=== PATIENT | female | born 1960 | race Caucasian/White ===

== ENCOUNTER 2023-05-22 15:31 | Inpatient (IN) | payer BC, SELFPAY ==
[~2023-05-22 15:31] MED LIST: Iopamidol-370 76% 500 ML MDV (1 ML CHARGE) ONE
[2023-05-22] MEDS ORDERED: Ondansetron PF 4 MG/2 ML Vial ONE (16:14)
[2023-05-22] MEDS ORDERED: Morphine 4 MG/ML VIAL ONE (16:14)
[2023-05-22 16:15] LABS: #Monocytes 1.7 thou/uL (0.11-0.59); #Neutrophils 10.9 thou/uL (1.40-6.50); %Basophils 0.2 % (0.0-1.0); %Lymphocytes 10.8 % (21.0-51.0); %Monocytes 12.1 % (0.0-10.0); %Neutrophils 76.4 % (42.0-75.0); Hematocrit 37.4 % (36.0-47.0); Hemoglobin 12.4 g/dL (12.0-16.0); Mean Corpuscular HGB CONC 33.2 g/dL (32.0-36.0); Mean Corpuscular Hemoglobin 30.7 pg (27.0-31.0); Mean Corpuscular Volume 92.6 fl (78.0-98.0); Mean Platelet Volume 8.6 fL (7.4-10.4); Platelet Count 359 10x3/uL (130-400); RBC Distribution Width 12.9 % (11.5-14.5); Red Blood Cell (RBC) Count 4.04 mill/uL (4.20-5.40); White Blood Cell (WBC) Count 14.3 10x3/uL (4.8-10.8)
[2023-05-22] MEDS ORDERED: Clindamycin/D5W 900 MG in Premix 1 BAG IVPB SCH (16:30)
[2023-05-22 17:00] LABS: ALT (SGPT) 14 U/L (8-55); AST (SGOT) 12 U/L (5-34); Albumin 4.1 g/dL (3.4-4.8); Alkaline Phosphatase 60 U/L (40-110); Anion Gap 11 mmol/L (10-20); BUN (Urea Nitrogen) 14 mg/dL (9.8-20.1); Bilirubin, Total 0.5 mg/dL (0.2-1.2); Calc. Creatinine Clearance 0 mL/min (70-130); Calcium 9.1 mg/dL (7.8-10.44); Carbon Dioxide 26 mmol/L (23-31); Chloride 103 mmol/L (98-107); Estimated GFR 87; Globulin 3.2 g/dL (2.4-3.5); Glucose 98 mg/dL (80-115); Potassium 3.4 mmol/L (3.5-5.1); Protein, Total 7.3 g/dL (5.8-8.1); Sodium 137 mmol/L (136-145)
[2023-05-22] MEDS ORDERED: Acetaminophen 650 MG Suppository PR PRN (17:59)
[2023-05-22] MEDS ORDERED: Acetaminophen 325 MG TAB PO PRN (17:59)
[2023-05-22] MEDS ORDERED: Ondansetron ODT 4 MG TAB PO PRN (17:59)
[2023-05-22] MEDS ORDERED: Lisinopril 10 MG TAB PO SCH (18:30)
[2023-05-22 22:12] VITALS: BMI 31.1
[2023-05-22] MEDS: Famotidine 20 MG TAB PO SCH (22:13)
[2023-05-22] MEDS: HYDROcodone/Acetaminophen 5/325 mg Tablet PO PRN (22:13)
[2023-05-22] MEDS: Clindamycin/D5W 900 MG in Premix 1 BAG IVPB SCH (22:31)
[2023-05-22] MEDS: Ondansetron PF 4 MG/2 ML Vial IVP PRN (23:22)
[2023-05-23] MEDS ORDERED: Piperacillin/Tazobactam 3.375 GM in Sodium Chloride 0.9% 100 ML IVPB SCH (01:15)
[2023-05-23] MEDS ORDERED: Dexamethasone 10 MG/ML VIAL SLOW IVP SCH (01:30)
[2023-05-23] MEDS ORDERED: Morphine 2 MG/ML VIAL SLOW IVP PRN (02:14)
[2023-05-23] MEDS ORDERED: Electrolyte Replacement Protocol 1 EACH FS SCH (02:15)
[2023-05-23] MEDS: Ampicillin/Sulbactam 3 GM in Sodium Chloride 0.9% 100 ML IVPB SCH ×4 (02:32→21:06)
[2023-05-23 05:04] LABS: #Monocytes 1.3 thou/uL (0.11-0.59); #Neutrophils 10.9 thou/uL (1.40-6.50); %Basophils 0.2 % (0.0-1.0); %Lymphocytes 7.3 % (21.0-51.0); %Monocytes 9.6 % (0.0-10.0); %Neutrophils 82.4 % (42.0-75.0); Hematocrit 33.9 % (36.0-47.0); Mean Corpuscular HGB CONC 32.4 g/dL (32.0-36.0); Mean Corpuscular Hemoglobin 30.3 pg (27.0-31.0); Mean Corpuscular Volume 93.4 fl (78.0-98.0); Mean Platelet Volume 8.7 fL (7.4-10.4); Platelet Count 325 10x3/uL (130-400); Red Blood Cell (RBC) Count 3.63 mill/uL (4.20-5.40); White Blood Cell (WBC) Count 13.2 10x3/uL (4.8-10.8)
[2023-05-23 05:38] LABS: Anion Gap 13 mmol/L (10-20); BUN (Urea Nitrogen) 14 mg/dL (9.8-20.1); Calc. Creatinine Clearance 119 mL/min (70-130); Calcium 8.6 mg/dL (7.8-10.44); Carbon Dioxide 24 mmol/L (23-31); Chloride 102 mmol/L (98-107); Estimated GFR 86; Glucose 128 mg/dL (80-115); Sodium 135 mmol/L (136-145)
[2023-05-23] MEDS: Clindamycin/D5W 900 MG in Premix 1 BAG IVPB SCH ×3 (07:19→22:09)
[2023-05-23] MEDS: Famotidine 20 MG TAB PO SCH ×2 (09:17→22:06)
[2023-05-23] MEDS: HYDROcodone/Acetaminophen 5/325 mg Tablet PO PRN (09:17)
[2023-05-23] MEDS: Lisinopril 10 MG TAB PO SCH (09:32)
[2023-05-23] MEDS ORDERED: EPINEPHrine 1 MG/ML VIAL ONE (12:50)
[2023-05-23] MEDS ORDERED: Chlorhexidine Gluconate 15 ML UDCUP SSP ONE (12:51)
[2023-05-23] MEDS ORDERED: Lidocaine 1% (PF) 30 ML VIAL ONE (12:51)
[2023-05-23] MEDS ORDERED: Clindamycin/D5W 900 mg/50 ml Premix Bag ONE (13:43)
[2023-05-23] MEDS ORDERED: Lidocaine 2% 6 ML (Jelly) SYR ONE (13:55)
[2023-05-23] MEDS ORDERED: Lidocaine 2% PF 5 ML VIAL ONE (13:55)
[2023-05-23] MEDS ORDERED: Oxymetazoline HCl 0.05% (30 ML BOT) ONE (13:59)
[2023-05-23] MEDS ORDERED: fentaNYL PF 100 MCG/2 ML SYRINGE ONE (14:15)
[2023-05-23] MEDS ORDERED: SUCCINYLCHOLINE/SOD CL,ISO/PF 200 MG/10 ML SYRINGE FS ONE (14:16)
[2023-05-23] MEDS ORDERED: Metoclopramide HCl 10 MG (2 mL) VIAL ONE (14:16)
[2023-05-23] MEDS ORDERED: PROPOFOL 20 ML ONE (14:16)
[2023-05-23] MEDS ORDERED: Dexamethasone 20 MG/5 ML VIAL ONE (14:16)
[2023-05-23] MEDS ORDERED: Ondansetron PF 4 MG/2 ML Vial ONE (14:16)
[2023-05-23] MEDS ORDERED: Glycopyrrolate 0.2 MG/ML 5 ML SYRINGE ONE (14:33)
[2023-05-23] MEDS ORDERED: Rocuronium Bromide 10 MG/ML (10ML VIAL) ONE (14:48)
[2023-05-23] MEDS ORDERED: Vancomycin 1 GM VIAL ONE (15:13)
[2023-05-23] MEDS ORDERED: SUGAMMADEX SODIUM 200 MG/2 ML VIAL ONE (15:25)
[2023-05-23] MEDS ORDERED: Promethazine HCl 25 MG/ML VIAL IM PRN (15:56)
[2023-05-23] MEDS ORDERED: Ondansetron HCl/PF 4 MG/2 ML Vial IVP PRN (15:56)
[2023-05-23] MEDS ORDERED: HYDROmorphone 2 MG/ML VIAL SLOW IVP PRN (15:56)
[2023-05-23] MEDS ORDERED: Ketorolac Tromethamine 30 MG/ML VIAL IVP PRN (15:56)
[2023-05-23] MEDS ORDERED: fentaNYL 50 mcg/mL 1 mL Vial ONE ×2 (15:57→16:16)
[2023-05-23] MEDS: Morphine 2 MG/ML VIAL SLOW IVP PRN ×2 (17:13→21:03)
[2023-05-23] MEDS: Chlorhexidine Gluconate 15 ML UDCUP SSP SCH (21:06)
[2023-05-24] MEDS: HYDROcodone/Acetaminophen 5/325 mg Tablet PO PRN ×5 (00:06→21:35)
[2023-05-24] MEDS: Ondansetron PF 4 MG/2 ML Vial IVP PRN (00:06)
[2023-05-24] MEDS: Ampicillin/Sulbactam 3 GM in Sodium Chloride 0.9% 100 ML IVPB SCH ×4 (02:41→19:10)
[2023-05-24] MEDS: Clindamycin/D5W 900 MG in Premix 1 BAG IVPB SCH ×3 (05:31→22:49)
[2023-05-24] MEDS: Famotidine 20 MG TAB PO SCH ×2 (09:55→21:33)
[2023-05-24] MEDS: Lisinopril 10 MG TAB PO SCH (09:55)
[2023-05-24] MEDS: Chlorhexidine Gluconate 15 ML UDCUP SSP SCH ×2 (09:56→21:33)
[2023-05-25] MEDS: Ampicillin/Sulbactam 3 GM in Sodium Chloride 0.9% 100 ML IVPB SCH ×4 (02:40→19:12)
[2023-05-25] MEDS: HYDROcodone/Acetaminophen 5/325 mg Tablet PO PRN ×4 (02:46→21:17)
[2023-05-25] MEDS: Clindamycin/D5W 900 MG in Premix 1 BAG IVPB SCH ×3 (06:08→21:16)
[2023-05-25 06:41] LABS: #Eosinphils 0.1 thou/uL (0.0-0.7); #Monocytes 1.2 thou/uL (0.11-0.59); %Basophils 0.4 % (0.0-1.0); %Lymphocytes 16.5 % (21.0-51.0); %Monocytes 12.1 % (0.0-10.0); %Neutrophils 69.3 % (42.0-75.0); Hemoglobin 10.7 g/dL (12.0-16.0); Mean Corpuscular HGB CONC 32.4 g/dL (32.0-36.0); Mean Corpuscular Hemoglobin 29.8 pg (27.0-31.0); Mean Corpuscular Volume 91.9 fl (78.0-98.0); Mean Platelet Volume 8.8 fL (7.4-10.4); Platelet Count 332 10x3/uL (130-400); RBC Distribution Width 13.1 % (11.5-14.5); Red Blood Cell (RBC) Count 3.59 mill/uL (4.20-5.40); White Blood Cell (WBC) Count 10.1 10x3/uL (4.8-10.8)
[2023-05-25 07:05] LABS: Anion Gap 10 mmol/L (10-20); BUN (Urea Nitrogen) 20 mg/dL (9.8-20.1); Calc. Creatinine Clearance 146 mL/min (70-130); Calcium 8.2 mg/dL (7.8-10.44); Carbon Dioxide 24 mmol/L (23-31); Chloride 103 mmol/L (98-107); Estimated GFR 100; Glucose 91 mg/dL (80-115); Potassium 3.7 mmol/L (3.5-5.1); Sodium 133 mmol/L (136-145)
[2023-05-25] MEDS: Lisinopril 10 MG TAB PO SCH (08:38)
[2023-05-25] MEDS: Famotidine 20 MG TAB PO SCH ×2 (08:38→21:17)
[2023-05-25] MEDS: Chlorhexidine Gluconate 15 ML UDCUP SSP SCH ×2 (08:38→21:14)
[2023-05-26] MEDS: Ampicillin/Sulbactam 3 GM in Sodium Chloride 0.9% 100 ML IVPB SCH ×4 (01:24→19:54)
[2023-05-26] MEDS: HYDROcodone/Acetaminophen 5/325 mg Tablet PO PRN ×2 (01:25→19:53)
[2023-05-26] MEDS: Clindamycin/D5W 900 MG in Premix 1 BAG IVPB SCH ×3 (05:41→21:02)
[2023-05-26 06:50] LABS: #Eosinphils 0.3 thou/uL (0.0-0.7); #Neutrophils 4.7 thou/uL (1.40-6.50); %Basophils 0.4 % (0.0-1.0); %Eosinophils 3.2 % (0.0-10.0); %Lymphocytes 24.2 % (21.0-51.0); %Monocytes 12.2 % (0.0-10.0); %Neutrophils 59.4 % (42.0-75.0); Hemoglobin 10.1 g/dL (12.0-16.0); Mean Corpuscular HGB CONC 32.6 g/dL (32.0-36.0); Mean Corpuscular Hemoglobin 30.6 pg (27.0-31.0); Mean Corpuscular Volume 93.9 fl (78.0-98.0); Mean Platelet Volume 8.8 fL (7.4-10.4); Platelet Count 337 10x3/uL (130-400); RBC Distribution Width 13.1 % (11.5-14.5); White Blood Cell (WBC) Count 7.9 10x3/uL (4.8-10.8)
[2023-05-26 07:06] LABS: Anion Gap 9 mmol/L (10-20); BUN (Urea Nitrogen) 15 mg/dL (9.8-20.1); Calc. Creatinine Clearance 128 mL/min (70-130); Calcium 8.3 mg/dL (7.8-10.44); Carbon Dioxide 26 mmol/L (23-31); Chloride 102 mmol/L (98-107); Estimated GFR 93; Glucose 96 mg/dL (80-115); Potassium 3.4 mmol/L (3.5-5.1); Sodium 134 mmol/L (136-145)
[2023-05-26] MEDS ORDERED: Potassium Chloride 20 MEQ TAB PO SCH (08:00)
[2023-05-26] MEDS: Famotidine 20 MG TAB PO SCH ×2 (09:07→19:52)
[2023-05-26] MEDS: Lisinopril 10 MG TAB PO SCH (09:07)
[2023-05-26] MEDS: Chlorhexidine Gluconate 15 ML UDCUP SSP SCH ×2 (09:08→19:52)
[2023-05-26] MEDS ORDERED: Polyethylene Glycol 3350 17 GM Packet PO PRN (10:36)
[2023-05-26] MEDS ORDERED: Polyethylene Glycol 3350 17 GM Packet PO SCH (10:45)
[2023-05-26 12:36] LABS: Potassium 3.9 mmol/L (3.5-5.1)
[2023-05-27] MEDS: Ampicillin/Sulbactam 3 GM in Sodium Chloride 0.9% 100 ML IVPB SCH ×3 (01:57→14:39)
[2023-05-27 04:54] LABS: #Eosinphils 0.4 thou/uL (0.0-0.7); #Monocytes 0.9 thou/uL (0.11-0.59); #Neutrophils 4.4 thou/uL (1.40-6.50); %Basophils 0.5 % (0.0-1.0); %Eosinophils 5.4 % (0.0-10.0); %Lymphocytes 23.6 % (21.0-51.0); %Monocytes 12.1 % (0.0-10.0); %Neutrophils 57.1 % (42.0-75.0); Hematocrit 31.7 % (36.0-47.0); Hemoglobin 10.4 g/dL (12.0-16.0); Mean Corpuscular HGB CONC 32.8 g/dL (32.0-36.0); Mean Corpuscular Hemoglobin 30.6 pg (27.0-31.0); Mean Corpuscular Volume 93.2 fl (78.0-98.0); Mean Platelet Volume 8.5 fL (7.4-10.4); Platelet Count 347 10x3/uL (130-400); RBC Distribution Width 12.9 % (11.5-14.5); White Blood Cell (WBC) Count 7.8 10x3/uL (4.8-10.8)
[2023-05-27 05:21] LABS: Anion Gap 11 mmol/L (10-20); BUN (Urea Nitrogen) 14 mg/dL (9.8-20.1); Calc. Creatinine Clearance 143 mL/min (70-130); Calcium 8.5 mg/dL (7.8-10.44); Carbon Dioxide 24 mmol/L (23-31); Chloride 106 mmol/L (98-107); Estimated GFR 99; Glucose 94 mg/dL (80-115); Potassium 3.9 mmol/L (3.5-5.1); Sodium 137 mmol/L (136-145)
[2023-05-27] MEDS: Clindamycin/D5W 900 MG in Premix 1 BAG IVPB SCH ×2 (05:28→15:19)
[2023-05-27] MEDS: Famotidine 20 MG TAB PO SCH (08:13)
[2023-05-27] MEDS: Lisinopril 10 MG TAB PO SCH (08:13)
[2023-05-27] MEDS: Chlorhexidine Gluconate 15 ML UDCUP SSP SCH (08:13)
[2023-05-27] MEDS ORDERED: Polyethylene Glycol 3350 17 GM Packet PO SCH (09:00)
[2023-05-27 16:02] VITALS: BP 139/79; TEMP 98
== END 2023-05-27 20:05 | disposition home or self-care (01) | DRG 854 ==
LOC: ERS 15:31 → 2SE 19:42 → SURG A 05-24 15:42
PROVIDERS: ADMIT Internal Medicine; ATTEND Hospitalist
PROC: 3E03329 Introduction of Other Anti-infective into Peripheral Vein, Percutaneous Approach (ICD-10-PCS; 2023-05-22)
PROC: 0W960ZZ Drainage of Neck, Open Approach (ICD-10-PCS; principal; 2023-05-23)
PROC: 0J910ZZ Drainage of Face Subcutaneous Tissue and Fascia, Open Approach (ICD-10-PCS; 2023-05-23)
PROC: 0CDXXZ1 Extraction of Lower Tooth, Multiple, External Approach (ICD-10-PCS; 2023-05-23)
DX: A41.9 Sepsis, unspecified organism (principal); E87.1 Hypo-osmolality and hyponatremia; K12.2 Cellulitis and abscess of mouth; I10 Essential (primary) hypertension; Z98.890 Other specified postprocedural states; Z79.899 Other long term (current) drug therapy; Z85.3 Personal history of malignant neoplasm of breast
CPT/HCPCS: 36415; 70491; 80048; 80053; 85025; 87070; 87205; 93005; 96365; 96375; J0171; J0295; J1100; J2001; J2270; J2272; J2405; J2704; J2765; J3010; J3370; J3490; Q9967